=== PATIENT | female | born 1980 | race Caucasian/White ===

== ENCOUNTER → 2016-09-13 | Outpatient (CLI) | payer OTHER ==
[~2016-09-13] MED LIST: ACYCLOVIR400 MG PO; ADIPEX-P37.5 M1 PO; FAMOTIDINE20 M1 PO; LISINOPRIL20 MG PO; NAPROSYN-EC500 M1 PO; NAPROSYN500 MG PO; NORVASC2.5 MG PO; OMEPRAZOLE20 M1 PO; PEPTO-BISMOL262 M1 PO; PREDNISONE10 MG PO; TOPAMAX50 MG PO; TYLENOL #3 PO; VISTARIL PO; ZYRTEC10 M1 PO
== END | disposition home or self-care (01) ==
LOC: CBAR 09:02
DX: Z01.818 Encounter for other preprocedural examination (principal); E66.01 Morbid (severe) obesity due to excess calories
CPT/HCPCS: 36415; 84443; 86677; G0463

== ENCOUNTER → 2016-10-25 | Outpatient (CLI) | payer OTHER ==
--- NOTE | ~2016-10-25 | CR97 ---
[facility] A Service [facility] RADIOLOGY TEXT RESULTS PATIENT: HEDY FREIRE LOCATION: [facility] : 76 UNIT #: [id number] AGE: [address]: Lyle Forrest III, MD SEX: F ORDER DR: [id number] [address] [address] [id number] O MR#: [id number] Acc #: [id number] NAME: HEDY FREIRE : 1980 SEX: F STUDY DATE/TIME: 10/25/2016 11:00 UNIT: [facility] ROOM: STUDY DESCRIPTION: CR Esophagram Attending Physician: Lyle Forrest III, M.D. Referring Physician: Lyle Forrest III, M.D. Ordering Physician: Lyle Forrest III, M.D. Primary Care Physician: Lucia Ibrahim A.P.R.N. MEDICAL IMAGING REPORT This report is preliminary unless electronic signature is present EXAM Esophagram, 10/25/2016. INDICATIONS 35-year-old female presenting for preop evaluation for Lap-Band placement. Short of air. Morbid obesity. Symptoms began today. TECHNIQUE Spot fluoroscopic views of the esophagus were obtained in various projections after the patient ingested gas crystals and thick and thin liquid barium on 10/25/2016. COMPARISON No comparisons. FINDINGS Notes indicate 59 images from the procedure were saved to the PACS. 0.8 minutes of fluoroscopy time used in the case. The esophagus demonstrates an unremarkable primary stripping wave. No significant secondary or tertiary contractions. No stricture, esophageal mass or focal mucosal abnormality. There is no hiatal hernia. IMPRESSION 1. Essentially negative esophagram. 2. Notes indicate 59 images from the procedure were saved to the DR PACS. 0.8 minutes of fluoroscopy time used in the case. Dictated by... Steven Heller M.D. [facility] A Service [facility] RADIOLOGY TEXT RESULTS PATIENT: HEDY FREIRE LOCATION: [facility] #: [id number] : 76 UNIT #: [id number] AGE: [address]: Lyle Forrest III, MD SEX: F ORDER DR: THIS IS AN ELECTRONICALLY VERIFIED REPORT Steven Heller M.D. at 10/28/2016 3:26 PM Swetha TD: 10/25/2016 20:44 JOB #: [id number] MEDICAL IMAGING REPORT Page 1 of 1 COPY
--- NOTE | ~2016-10-25 | CR63 ---
[facility] A Service of [facility] & [facility] RADIOLOGY TEXT RESULTS PATIENT: HEDY FREIRE LOCATION: [facility] : 78 UNIT #: [id number] AGE: [address]: Lyle Forrest III, MD SEX: F ORDER DR: [id number] [facility] [address] [facility]. [place], [place] [address] [id number] O MR#: [id number] Acc #: [id number] NAME: HEDY FREIRE : 1980 SEX: F STUDY DATE/TIME: 10/25/2016 9:45 UNIT: [facility] ROOM: STUDY DESCRIPTION: CR Chest 2 View Attending Physician: Lyle Forrest III, M.D. Referring Physician: Lyle Forrest III, M.D. Ordering Physician: Lyle Forrest III, M.D. Primary Care Physician: Lucia Ibrahim A.P.R.N. MEDICAL IMAGING REPORT This report is preliminary unless electronic signature is present EXAM Chest, 10/25/2016, [facility]. HISTORY 35-year-old woman preop clearance for laparoscopic adjustable gastric band placement and possible paraesophageal hernia repair. Short of air. Morbid obesity. COMPARISON Chest, 06/02/2014. FINDINGS Two-view chest demonstrates normal heart size. Hilar structures and mediastinal contours are preserved. Bilateral lungs are expanded and clear. Costophrenic angles are preserved. IMPRESSION Negative chest. Large body habitus. Dictated by... Ervin Antunez M.D. THIS IS AN ELECTRONICALLY VERIFIED REPORT Ervin Antunez M.D. at 10/25/2016 1:56 PM SEAN/nico TD: 10/25/2016 11:48 JOB #: [id number] MEDICAL IMAGING REPORT Page 1 of 1 COPY
--- NOTE | ~2016-10-25 | EKG ---
PATIENT: HEDY FREIRE UNIT #: [id number] Ventricular Rate: 71 BPM Atrial Rate: 71 BPM P-R Interval: 174 ms QRS Duration: 78 ms Q-T Interval: 380 ms QTC Calculation(Bezet): 412 ms P [place]: 22 degrees Calculated R [place]: 56 degrees Calculated T [place]: 36 degrees Diagnosis Line: Normal sinus rhythm with sinus arrhythmia Diagnosis Line: Normal ECG Diagnosis Line: When compared with ECG of 14-APR-2016 17:07, Diagnosis Line: No significant change was found Diagnosis Line: Confirmed by CHARLEE BROWNING MD ([id number]) on 10/26/2016 Diagnosis Line: 8:33:37 AM INTERPRETING MD: NAM ARREDONDO
[2016-10-25 09:52] LABS: HEMATOCRIT 39.8 % (35.0-45.0); HEMOGLOBIN 13.6 gm/dL (12.0-16.0); MEAN CELL VOLUME 87.1 FL (83-96); MEAN CORPUSCULAR HEMOGLOBIN 29.7 PG (28-34); MEAN CORPUSCULAR HGB CONC 34.2 g/dL (30-36); MEAN PLATELET VOLUME 7.5 FL (6.5-11.5); RED BLOOD COUNT 4.57 X10e (3.90-5.30); RED CELL DISTRIBUTION WIDTH 12.8 % (11.0-15.5); WHITE BLOOD COUNT 6.7 X10e3 (4.0-10.5)
[2016-10-25 10:44] LABS: ALBUMIN SERUM 3.6 g/dL (3.5-5.0); BILIRUBIN,TOTAL 0.5 mg/dL (0.2-2.0); CALCIUM SERUM 8.9 mg/dL (8.4-10.2); CREATININE SERUM 0.6 mg/dL (0.6-1.4); GLOM FILT RATE Estimated 116.4 mL/min (>60); POTASSIUM 4.4 mmol/L (3.5-5.1); PROTEIN TOTAL SERUM 7.2 g/dL (6.0-8.3)
== END | disposition home or self-care (01) ==
LOC: CRAD 08:10 → CAMB 10:00
PROVIDERS: Surgery
DX: Z01.818 Encounter for other preprocedural examination (principal); E66.01 Morbid (severe) obesity due to excess calories
CPT/HCPCS: 36415; 71020; 74220; 80053; 80061; 84443; 85027; 93005

== ENCOUNTER → 2016-11-06 | Day surgery (SDC) | payer OTHER ==
--- NOTE | ~2016-11-06 | CR7 ---
[facility] A Service of [facility] & [facility] RADIOLOGY TEXT RESULTS PATIENT: HEDY FREIRE LOCATION: [facility] : 76 UNIT #: [id number] AGE: [address]: Lyle Forrest III, MD SEX: F ORDER DR: [id number] [facility] [address] [place], [place] [address] [id number] O MR#: [id number] Acc #: [id number] NAME: HEDY FREIRE : 1980 SEX: F STUDY DATE/TIME: 11/06/2016 11:48 UNIT: [facility] ROOM: STUDY DESCRIPTION: CR Abdomen Single AP View Attending Physician: Lyle Forrest III, M.D. Ordering Physician: Lyle Forrest III, M.D. Primary Care Physician: Lucia Ibrahim A.P.R.N. MEDICAL IMAGING REPORT This report is preliminary unless electronic signature is present EXAM AP abdomen, 11/06/2016. HISTORY Abdominal pain. Status post laparoscopic gastric band placement today. COMPARISON CT abdomen and pelvis 04/14/2016. FINDINGS Gastric band device has been placed, located at or just slightly below the expected location of the esophagogastric junction. Phi angle is somewhat difficult to assess, due to patient's slight rotation toward the left. The phi angle is 54 degrees. Insufflation port is located in the left lower quadrant of the abdomen. There is mild gaseous distention of the stomach and large or small bowel loops without evidence of significant distension or obstruction. No gross free air is identified. Imaged lung bases are clear. Cholecystectomy. Bilateral tubal ligation clips in place. Osseous structures within normal limits. IMPRESSION 1. Satisfactory appearance of the gastric band device. Estimated phi angle, allowing for slight patient rotation to the left, is 54 degrees. 2. No acute findings. Dictated by... Linh Hernandes M.D. THIS IS AN ELECTRONICALLY VERIFIED REPORT Linh Hernandes M.D. at 11/07/2016 12:10 PM LLH/js STS. [facility] A Service of [facility] & [facility] RADIOLOGY TEXT RESULTS PATIENT: HEDY FREIRE LOCATION: [facility] #: [id number] : 76 UNIT #: [id number] AGE: [address]: Lyle Forrest III, MD SEX: F ORDER DR: TD: 11/06/2016 14:39 JOB #: [id number] MEDICAL IMAGING REPORT Page 1 of 1 COPY
--- NOTE | ~2016-11-06 | OR ---
Unit #: [id number] #: [id number] Patient: HEDY FREIRE [id number] [facility] [address] [place], [place] [address] [id number] O MR#: [id number] NAME: HEDY FREIRE ROOM: Date of Procedure: 11/06/2016 Admission Date: 11/06/2016 Surgeon: Lyle Forrest III, M.D. : 1980 Attending Physician: Lyle Forrest III, M.D. Primary Care Physician: Lucia Ibrahim A.P.R.N. OPERATIVE REPORT PREOPERATIVE DIAGNOSIS Severe obesity. POSTOPERATIVE DIAGNOSIS Severe obesity. PROCEDURE PERFORMED Laparoscopic adjustable gastric banding (AP standard with low-profile port). SECONDARY DIAGNOSIS Anterior paraesophageal hernia. SECONDARY PROCEDURE Laparoscopic repair of anterior paraesophageal hernia. EDUCATION ADMINISTRATOR Dr. Rahul Suggs. SPECIMENS None. COMPLICATIONS None apparent. ESTIMATED BLOOD LOSS Minimal. ANESTHESIA General endotracheal tube anesthesia. INDICATIONS FOR PROCEDURE This is a 35-year-old lady, who has chronic severe obesity with a BMI of 35 and associated comorbidities of hypertension and reflux. She has been through the bariatric program at [facility] and understands the risks and benefits of the procedure. DESCRIPTION OF PROCEDURE After consent was obtained, including the risks and benefits of slippage, erosion, port dysfunction, and possible failure of weight loss due to noncompliance, the patient was taken to the operating room and placed in the supine position. General anesthetic was administered and the abdomen Unit #: [id number] #: [id number] Patient: HEDY FREIRE was prepped and draped in standard surgical fashion. I began by making a 2 cm incision just above and to the left of the umbilicus. I used a Visiport to enter the peritoneal cavity without any difficulty. C02 pneumoperitoneum was then established. Next, I placed a 5 mm port in the right upper quadrant, a 5 mm Bashir liver retractor in the subxiphoid region to provide exposure of the gastroesophageal junction. Next, a 10 mm port was placed in the left upper quadrant and a 5 mm port was placed in the left lateral subcostal region. I began by performing an examination of the GE junction to evaluate for a hiatal hernia. We then scored the peritoneal attachments overlying the angle of His. I then opened up the clear space in the gastrohepatic ligament, and then using 2 blunt graspers, I identified the small fat pad crossing over the right crura. I swept the fat anterior to the crura off the crura and using the pars flaccida, I created a retrogastric tunnel where the blunt grasper exited at the angle of His. Once I had made this tunnel safely, I then inserted an Allergan AP band into the abdominal cavity. This adjustable gastric band was then place around the upper part of the stomach and fastened and buckled anteriorly. We then tacked the lateral fundus over the band to the proximal pouch with 2 interrupted 0 Ethibond sutures. I then used a third stitch to imbricate the excess anterior stomach by going from the lesser curvature up towards where the last stitch was placed. We then had excellent hemostasis. I removed the Bashir liver retractor. We then removed the port tubing through the initial port incision. The rest of the ports were removed, and the pneumoperitoneum was released. I then left a small tail on the tubing. We then attached the port to the excess band tubing. We placed a piece of Prolene mesh along the back side of the port and used a Prolene stitch to anchor this mesh in place. We then trimmed the excess mesh so that just a small footprint of mesh was in place behind the port. I then inserted the tubing back into the abdominal cavity, and we placed the port into a small pocket that was made just inferior to where our initial port incision was made. The mesh was in direct contact with the fascia, and this will scar in place to hold the port in place. We then injected all the port sites with 0.25% plain Marcaine, and I reapproximated the skin edges with interrupted 4-0 Vicryl subcuticular sutures. Steri-strips were then applied. The patient tolerated the procedure without any problems and returned to the recovery room in stable condition. ADDENDUM After exposure of the GE junction, the patient was noted to have a small to medium size anterior paraesophageal hernia. I scored the phrenoesophageal ligament, reduced the hernia defect including the hernia sac and after identifying both the right and left crura, I reapproximated the defect with an interrupted 0 Ethibond [id number] suture. I then proceed with the case as listed above. Dictated by... Lyle Forrest III, M.D. VCL/ester TD: 11/07/2016 16:07 JOB #: [id number] Unit #: [id number] #: [id number] Patient: HEDY FREIRE OPERATIVE REPORT Page 1 of 1 X Lyle Forrest III, MD PROCEDURE OPERATIVE NOTE
== END | disposition home or self-care (01) ==
LOC: CSUR 08:02
DX: E66.01 Morbid (severe) obesity due to excess calories (principal); K44.9 Diaphragmatic hernia without obstruction or gangrene; I10 Essential (primary) hypertension; K21.9 Gastro-esophageal reflux disease without esophagitis; G43.909 Migraine, unspecified, not intractable, without status migrainosus; J45.909 Unspecified asthma, uncomplicated; Z79.899 Other long term (current) drug therapy; Z68.36 Body mass index [BMI] 36.0-36.9, adult; Z88.1 Allergy status to other antibiotic agents; Z88.8 Allergy status to other drugs, medicaments and biological substances; Z98.51 Tubal ligation status; Z90.49 Acquired absence of other specified parts of digestive tract
CPT/HCPCS: 74000; 84703; C1781; J0131; J0330; J1100; J1650; J1885; J2250; J2405; J2710; J3010